=== PATIENT | female | born 1965 | race Caucasian/White ===

== ENCOUNTER → 2016-09-06 | Outpatient (CLI) | payer MEDICARE, MEDICAID ==
--- NOTE | 2016-09-06 12:59 | RADIOLOGY REPORT PS360 ---
HIP LT 2-3V W/PELVIS IF PERFOR ORDERING PHYSICIAN : Keri Rosado APRN PATIENT AGE: 50 years GENDER: Female INDICATION: ACUTE HIP PAIN Fall with left hip pain TECHNIQUE: 2 views left hip with AP pelvis COMPARISON: no comparison studies FINDINGS AP and frog-leg view left hip appear intact. No fracture evident femoral head and neck intact normal density with left hip joint space well maintained. AP pelvis, osseous pelvis intact sacrum and SI joints unremarkable right hip unremarkable. Some type of catheter projected over the left lower quadrant noted IMPRESSION: Negative left hip No fracture nor acute findings Negative AP pelvis
--- NOTE | 2016-09-06 21:30 | RADIOLOGY REPORT PS360 ---
KNEE-3 VIEWS-LT ORDERING PHYSICIAN : Keri Rosado APRN PATIENT AGE: 50 years GENDER: Female INDICATION: ACUTE KNEE PAIN Left knee pain. Fall injury TECHNIQUE: 3 view left knee COMPARISON: None FINDINGS Left knee with no fracture nor dislocation. No joint effusion. Joint space adequately maintained with only question borderline narrowing lateral compartment. IMPRESSION. Negative left knee. No fracture. No acute findings.
== END ==
LOC: RAD 10:57
DX: M25.552 Pain in left hip (principal); M25.562 Pain in left knee

== ENCOUNTER → 2016-11-05 | Outpatient (CLI) | payer MEDICARE, MEDICAID | LOC: CARL-LAB 10:43 | DX: G40.909 Epilepsy, unspecified, not intractable, without status epilepticus (principal) ==